=== PATIENT | male | born 1970 | race Caucasian/White ===

== ENCOUNTER 2018-07-22 01:22 | Outpatient (CLI) | payer OTHER, SELFPAY ==
--- NOTE | 2018-07-22 08:14 | DI.RAD_ITS ---
SYMPTOM/DIAGNOSIS: LT SHOULDER BURSITIS, PAIN. M25.512, M75.52 LEFT SHOULDER: No fracture or dislocation is seen. The glenohumeral joint space is well maintained. Humeral head is normally positioned. No tendon or joint space calcifications are seen. There is no significant AC joint spurring. IMPRESSION: Negative left shoulder.
== END 2018-07-22 01:42 ==
PROVIDERS: PCP Family Medicine; Visit Provider Family Medicine
DX: M25.512 Pain in left shoulder (principal); M75.52 Bursitis of left shoulder
CPT/HCPCS: 73030

== ENCOUNTER 2018-07-28 07:38 | Day surgery (SDC) | payer OTHER, SELFPAY ==
--- NOTE | 2018-07-28 06:27 | W.COLOREPORT ---
Date of service: 07/28/18 Time of Service: Colonoscopy Report Date of procedure: 07/28/18 Pre-op diagnosis general: Colon Cancer Screening and Family history Post-op diagnosis procedure note: other (Colorectal polyps) Procedure: Colonoscopy with polypectomy by hot snare and cold forceps Tattooing of polypectomy site Surgeon: Nan Morrow Anesthesia proc note operative: MAC (Olivia Levy, ROADS [employer]ARKING [employer]S SWEEPER OPERATOR/ ASA 2) Estimated blood loss (mL): 3 Pathology: other (Polyp at 30 cm and rectal polyp x2) Complications: None Disposition: same day Indications: Mr. Marinelli is a pleasant 48-year-old gentleman who was seen in the office for his first screening colonoscopy. He has a family history of colon cancer. Risks, benefits and complications have been reviewed. Complications include but are not limited to bleeding, pain, perforation, missed small lesion/polyp, sore throat, aspiration and adverse reaction to the medications. Questions were entertained and answered to their satisfaction and they wished to proceed. No guarantees were given or implied. Prep: Miralax/Dulcolax Procedure Start Time: Procedure End Time: 10:03 Retraction Time: 27 minutes Findings: 1. Pedunculated polyp at 30 cm about 0.8cm 2. Sessile rectal polyps x2 Procedure Description: After informed consent was obtained the patient was taken to the procedure room and placed in a left decubitous position. Monitors were applied and a time out was done. The patients name, date of , procedure, allergies to medications and metal in their body was reviewed. The patient was then sedated. Once sedated and comfortable a rectal exam was done. External exam was normal. Internal exam revealed a normal sphincter tone and no palpable masses. The prostate smooth. The scope was then introduced and retro-flexed. No internal hemorrhoids were identified. The scope was then advanced to the cecum without difficulty. The TI and appendiceal orifice were identified. The prep was good. The scope was then slowly retracted over 27 minutes back into the rectum. One pedunculated polyp was noted at 30 cm and removed with a hot snare. The area was tattooed with blue dye. 2 sessile polyps were removed with cold forceps. The scope was removed and the patient was woken up and taken back to Same day surgery in stable condition. The patient tolerated the procedure well and there were no immediate complications. Follow up: The patient should follow up in 3-5 years unless they develop changes in bowel habits or other new gastrointestinal complaints.
--- NOTE | 2018-07-28 06:28 | W.PM.DSUDISC ---
Discharge Plan Disposition Patient Disposition: HOME Condition: Good Discharge Details Reason For Visit: Colon Cancer Screening Attending Provider: Nan Morrow Primary Care Provider: Nathan Wu Home Meds and New Rx's Prescriptions: Continued flu vac [id number] 36mos up(PF) 60 mcg (15 mcg x 4)/0.5 mL syringe 60 mcg IM ONCE Qty: 0.5 RF: 0 venlafaxine 37.5 mg tablet 37.5 mg PO BID Qty: 60 RF: 5 ibuprofen 200 MG capsule 4 tab PO TID RF: 0 Discontinued bisacodyl [Dulcolax (bisacodyl)] 5 mg tablet,delayed release (DR/EC) 5 mg PO ONCE Qty: 4 RF: 0 polyethylene glycol 3350 17 gram/dose powder 255 g PO ONCE Qty: 255 RF: 0 Discharge Instructions Instructions: Colonoscopy (DC), Colorectal Polyps (DC) Additional Instructions: Findings: 1. Colon polyps Follow up: 3-5 years New Medications: none Please call if you develop: fevers >101.5 Nausea or Vomiting Abdominal pain that is not transient DAY SURGERY UNIT POST COLONOSCOPY INSTRUCTIONS 1. Because there will be medication in your system for the next 24 hours, you may feel a little sleepy. Your coordination will be affected. Therefore: a. Do not drive or operate dangerous equipment for 24 hours. b. Do not drink alcohol beverages for 24 hours (not even beer). c. Plan to go home and rest for the day. 2. Generally there are no restrictions on your activity after a day or so has gone by, but you may feel a bit fatigued for a few days. 3 After you arrive home you may have a light meal and return to a normal diet as you can tolerate it without feeling sick to your stomach. 4. After surgery, you may feel pain or discomfort. This should be only transient, but if it persists please contact your doctor. 5. If there are any questions regarding the findings of your procedure, please feel free to contact your doctor. 6. If you are unable to contact your doctor with a problem, contact the hospital at [phone]. 7. Continue all your regular medications unless directed otherwise. I understand the above instructions and have no questions. Signature of Patient or Responsible Adult Escort Date/Time Name of Responsible Adult Escort Signature of Nurse Date/Time Activity:: Activity as Tolerated Diet:: As Tolerated Discharge Orders Discharge Orders: Discharge Order (Routine); Ordered 07/28/18 Ordered By: Nan Morrow DS: Diagnosis Discharge Diagnosis (1) S/P colonoscopy: Status: Acute (2) Colorectal polyp detected on colonoscopy: Status: Acute
[2018-07-28 07:57] VITALS: BP 145/107; PULSE 87; RESP 16; TEMP 36.4
[2018-07-28] MEDS: Lactated Ringers 1,000 ML 80 ML IV (08:15)
--- NOTE | 2018-07-28 09:54 | BOWEL_PTH ---
PATIENT: August Marinelli LOC: [facility] U#:[id number] AGE/SX: 48/M ROOM: RE07/28/[address]: Nan Morrow MD : 1970 BED: DIS: 07/28/2018 SPEC #: [id number] RECD: 07/28/18 12:37 STATUS: MERA REQ #: [id number] MARIELA: 07/28/18 09:[address]: Nan Morrow DEPT: Surgical Specimen RECD BY: Nathalie Rivera ENTERED: 07/28/18 12:38 SP TYPE: Bowel OTHR DR: Nathan Wu MD Tissues: 1 - BIOPSY BOWEL 2 - BIOPSY BOWEL Procedures: GROSS AND MICRO LEVEL 4 Comments: [id number]
[2018-07-28] MEDS: Endoscopic Tattoo 5 ML SYR IJ (10:05)
[2018-07-28 10:37] VITALS: BP 123/83; PULSE 75; RESP 16; TEMP 37.1; O2SAT 96
== END 2018-07-28 11:05 | disposition home or self-care (01) ==
LOC: SUR 07:38
PROVIDERS: PCP Family Medicine; Visit Provider Surgery
PROC: 0DJD8ZZ Inspection of Lower Intestinal Tract, Via Natural or Artificial Opening Endoscopic (ICD-10-PCS; CPT 45378; principal; 2018-07-28 09:15)
DX: Z12.11 Encounter for screening for malignant neoplasm of colon (principal); D12.5 Benign neoplasm of sigmoid colon; K62.1 Rectal polyp; Z80.0 Family history of malignant neoplasm of digestive organs
CPT/HCPCS: 45385; 45380; 45381; 88305

== ENCOUNTER 2019-05-28 01:09 | Outpatient (CLI) | payer OTHER, SELFPAY ==
[2019-05-28 11:18] LABS: Abs Immature Grans 0.01 k/cumm (0.0-0.09); Absolute Basophil Count 0.03 k/cumm (0.0-0.2); Absolute Eosinophil Count 0.08 k/cumm (0.0-0.7); Absolute Monocyte Count 0.74 k/cumm (0.11-0.7); Absolute Neutrophil Count 3.17 k/cumm (1.2-6.7); Basophils % 0.6; Eosinophils % 1.5; HCT 42.5 % (40.0-50.0); HGB 14.6 g/dL (13.5-17.5); Immature Grans % 0.2; Lymphocytes % 25.8; Mean Corp. HGB Concentration 34.4 g/dL (32.0-36.0); Mean Corpuscular Hemoglobin 32.4 pg (27.0-33.0); Mean Corpuscular Volume 94.2 fL (80-95); Mean Platelet Volume 8.4 fL (8.0-11.0); Monocytes % 13.6; Neutrophils % 58.3; Platelet Count 236 x1000/uL (130-400); RBC 4.51 m/cumm (4.50-6.00); RBC Distribution Width 12.5 % (11.8-14.1); White Blood Cell Count 5.43 k/cumm (4.4-10.8)
[2019-05-28 12:21] LABS: ALT 39 U/L (16-63); AST 22 U/L (15-37); Albumin 4.1 g/dL (3.4-5.0); Alkaline Phosphatase 41 U/L (46-116); Anion Gap 7.9 mmol/L (3-11); BUN 14 mg/dL (7-18); Bilirubin, Total 0.6 mg/dL (0.2-1.0); CO2 29.1 mmol/L (21.0-32.0); CREATININE 0.94 mg/dL (0.70-1.30); Calcium 9.1 mg/dL (8.5-10.1); Chloride 105 mmol/L (98-107); Glucose 86 mg/dL (70-100); Potassium 4.2 mmol/L (3.5-5.1); Sodium 142 mmol/L (136-145); TSH (W/Ref FT4) 0.92 uIU/mL (0.36-3.74); Total Protein 7.4 g/dL (6.4-8.2)
[2019-05-29 09:39] LABS: PSA, Screening 0.8 ng/ml (0-2.5)
== END 2019-05-28 01:29 ==
PROVIDERS: PCP Family Medicine; Visit Provider Family Medicine
DX: Z80.42 Family history of malignant neoplasm of prostate; Z12.5 Encounter for screening for malignant neoplasm of prostate; F32.9 Major depressive disorder, single episode, unspecified; R19.4 Change in bowel habit
CPT/HCPCS: 36415; 80053; 84153; 84443; 85025

== ENCOUNTER 2020-08-02 02:21 | Outpatient (CLI) | payer OTHER, SELFPAY ==
[2020-08-02 08:05] LABS: ALT 50 U/L (16-63); AST 29 U/L (15-37); Alkaline Phosphatase 41 U/L (46-116); Anion Gap 10.7 mmol/L (3-11); BUN 15 mg/dL (7-18); Bilirubin, Total 0.6 mg/dL (0.2-1.0); CO2 26.3 mmol/L (21.0-32.0); CREATININE 1.16 mg/dL (0.70-1.30); Calcium 8.8 mg/dL (8.5-10.1); Calculated LDL 122 mg/dL (<100); Chloride 105 mmol/L (98-107); Cholesterol 222 mg/dL (<200); Glucose 107 mg/dL (74-106); HDL Cholesterol 61 mg/dL (40-60); Potassium 4.2 mmol/L (3.5-5.1); Sodium 142 mmol/L (136-145); Total Protein 7.3 g/dL (6.4-8.2); Triglyceride 195 mg/dL (<150)
== END 2020-08-02 02:41 ==
PROVIDERS: PCP Family Medicine; Visit Provider Family Medicine
DX: Z00.00 Encounter for general adult medical examination without abnormal findings (principal); R03.0 Elevated blood-pressure reading, without diagnosis of hypertension; Z13.220 Encounter for screening for lipoid disorders
CPT/HCPCS: 36415; 80053; 80061

== ENCOUNTER 2020-10-05 12:21 | Outpatient (CLI) | payer OTHER, SELFPAY ==
--- NOTE | 2020-10-05 12:15 | DI.RAD_ITS ---
EXAM: XR FOOT RT COMPLETE CLINICAL HISTORY: Stepped on tractor then severe pain/swelling, pain rt great toe, M79.674. TECHNIQUE: 2D digital imaging was performed. COMPARISON: No exams were available for comparison FINDINGS: There is no evidence of fracture or diastasis of the Lisfranc joint. The medial sesamoid bones subja cent to the great toe metatarsal head is noted to be bipartite. The metatarsophalangeal joint of the great toe appears unremarkable. Bone density is normal. No osseous lesion. No pes planus. Report IMPRESSION: DATA REPOSITORY: RADIATION DOSE DELIVERED:
[2020-10-05 13:06] LABS: Uric Acid 7.9 mg/dL (3.5-7.2)
== END 2020-10-05 12:22 ==
LOC: DI 12:22
PROVIDERS: PCP Family Medicine; Visit Provider Nurse Practitioner Family
DX: M79.674 Pain in right toe(s) (principal); M10.9 Gout, unspecified
CPT/HCPCS: 36415; 73630; 84550

== ENCOUNTER 2021-01-30 03:22 | Outpatient (CLI) | payer OTHER, SELFPAY ==
[2021-01-30 08:36] LABS: ALT 58 U/L (16-63); AST 28 U/L (15-37); Albumin 3.9 g/dL (3.4-5.0); Alkaline Phosphatase 44 U/L (46-116); BUN 18 mg/dL (7-18); Bilirubin, Total 0.3 mg/dL (0.2-1.0); CREATININE 1.1 mg/dL (0.70-1.30); Calcium 8.9 mg/dL (8.5-10.1); Calculated LDL 153 mg/dL (<100); Chloride 104 mmol/L (98-107); Cholesterol 255 mg/dL (<200); Glucose 109 mg/dL (74-106); HDL Cholesterol 50 mg/dL (40-60); Potassium 4.1 mmol/L (3.5-5.1); Sodium 141 mmol/L (136-145); Total Protein 7.3 g/dL (6.4-8.2); Triglyceride 263 mg/dL (<150)
== END 2021-01-30 03:23 | disposition home or self-care (01) ==
LOC: LBO 03:22
PROVIDERS: PCP Nurse Practitioner Family; Visit Provider Nurse Practitioner Family
DX: I10 Essential (primary) hypertension (principal); Z13.220 Encounter for screening for lipoid disorders; Z13.29 Encounter for screening for other suspected endocrine disorder; Z80.42 Family history of malignant neoplasm of prostate; Z12.5 Encounter for screening for malignant neoplasm of prostate
CPT/HCPCS: 36415; 80053; 80061; 84154; 84443

== ENCOUNTER 2022-03-14 03:03 | Outpatient (CLI) | payer OTHER, SELFPAY | END 2022-03-14 03:04 | disposition home or self-care (01) | LOC: LBO 03:05 | PROVIDERS: PCP Nurse Practitioner Family; Visit Provider Nurse Practitioner Family | DX: I10 Essential (primary) hypertension (principal) | CPT/HCPCS: 36415; 82565 ==

== ENCOUNTER 2022-09-10 09:05 | Day surgery (SDC) | payer OTHER, SELFPAY ==
--- NOTE | 2022-09-09 21:18 | W.COLOREPORT ---
Date of service: 09/10/22 Time of Service: 13:12 Colonoscopy Report Date of procedure: 09/10/22 Pre-op diagnosis general: H/o tubulovillous adenoma Post-op diagnosis procedure note: other (rectal benign-appearing polyps) Procedure: 1. Colonoscopy 2. polypectomy by cold forceps Surgeon: Orlin Glynn Anesthesia Type: MAC and General:No Airway Estimated blood loss (mL): 2 Pathology: other (1. rectal polyps) Complications: None Disposition: same day Indications: This is a 52-yo male here for surveillance colonoscopy. He has a personal history of tubulovillous adenoma (2018), and a family history of colon cancer in his father. Risks, benefits and complications have been reviewed. Complications include but are not limited to bleeding, pain, perforation, missed small lesion/polyp, sore throat, aspiration and adverse reaction to the medications. Questions were answered to their satisfaction and they wished to proceed. No guarantees were given or implied. Prep: Miralax/Dulcolax Retraction Time: >20 minute Findings: 1. previous ink tattoo in region of rectosigmoid, no associated polyps seen 2. rectal hyperplastic-appearing polyps Procedure Description: After informed consent was obtained, the patient was taken to the procedure room and placed in a left decubitus position. Monitors were applied and a time out was done. The patient's name, date of , procedure, allergies to medications, and metal in their body were reviewed. The patient was then sedated. Once sedated and comfortable, a digital rectal exam was done. External exam was normal. Internal exam revealed normal sphincter tone, and no palpable masses or gross blood. The colonoscope was then introduced and advanced to the cecum under direct visualization with mild difficulty. The ileocecal valve and appendiceal orifice were visualized. The prep was good, according to the [place]ed [place] Bowel Prep Scale. ?The scope was then slowly withdrawn over 20 minutes in a circumferential manner to the rectum. A good amount of lavage was performed to visualize the mucosa. In doing so, two hyperplastic-appearing polyps were encountered in the rectum. A previous ink tattoo in the rectosigmoid was visualized and there was no residual/recurrent polyp seen there. There? was no diverticulosis noted. The mucosa is pink and healthy.? In the rectum, the scope was retroflexed, and no internal hemorrhoids were noted.? The scope was straightened and withdrawn from the anus. The patient tolerated the procedure well, and there were no immediate complications.? The patient was taken to the Day Surgery Unit recovery?area in good condition. Follow up: 3-5 years, await pathology
--- NOTE | 2022-09-09 22:12 | W.PM.DSUDISC ---
Date of service: 09/10/22 Time of Service: 13:22 Discharge Plan Disposition Patient Disposition: Home Condition: Stable Discharge Details Reason For Visit: Screening for colorectal cancer Attending Provider: Orlin Glynn Primary Care Provider: Osmin Juárez Home Meds and New Rx's Prescriptions: No Action baclofen 10 mg tablet 10 mg PO BID PRN (Reason: muscle spasm) Qty: 60 0RF simvastatin 20 mg tablet 20 mg PO QHS Qty: 90 3RF indomethacin 50 mg capsule 50 mg PO TID Qty: 30 0RF Rx Instructions: administer with food or milk sildenafil [Viagra] 50 mg tablet 50 mg PO DAILY PRN (Reason: sexual activity) Qty: 30 5RF Rx Instructions: administer 30 minutes to 4 hours before activity triamcinolone acetonide 0.1 % lotion 1 applic topical TID PRN (Reason: Dermatitis) Qty: 60 5RF metoprolol succinate 100 mg tablet extended release 24 hr 150 mg PO DAILY Qty: 90 3RF lisinopril 20 mg tablet 20 mg PO DAILY Qty: 90 4RF venlafaxine 75 mg tablet 75 mg PO BID Qty: 60 3RF Discharge Instructions Instructions: Colonoscopy (DC), Colorectal Polyps (DC) Additional Instructions: Await pathology results Activity:: Activity as Tolerated Diet:: As Tolerated DS: Diagnosis Discharge Diagnosis (1) Rectal polyp: Status: Acute Asessment and Plan: await pathology
[2022-09-10 09:49] VITALS: BP 148/95; PULSE 94; RESP 18; TEMP 36.7; O2SAT 100
[2022-09-10] MEDS: Lactated Ringers 1,000 ML 80 ML IV (10:20)
--- NOTE | 2022-09-10 10:43 | ANES.PREOP_ITS ---
General Info Date of Service Date Performed: 09/10/22 Height: 6 ft 1 in Weight: 116.4 kg Body Mass Index (BMI): 33.8 Surgical Procedure: Operation Date: 09/10/22 10:35 Proposed Procedure Side Surgeon serjio Glynn MD Meds Allergies and Home Medications Allergies Allergy/AdvReac Type Severity Reaction Status Date / Time No Known Allergies Allergy Verified 09/10/22 09:45 Home Medication Medication Instructions Recorded baclofen 10 mg tablet 10 mg PO BID PRN muscle spasm #60 05/25/19 tabs sildenafil 50 mg tablet (Viagra) 50 mg PO DAILY PRN sexual activity 10/26/19 #30 tabs indomethacin 50 mg capsule 50 mg PO TID #30 caps 12/15/21 simvastatin 20 mg tablet 20 mg PO QHS #90 tabs 12/15/21 metoprolol succinate 100 mg 150 mg PO DAILY #90 tabs 01/15/22 tablet,extended release 24 hr triamcinolone acetonide 0.1 % 1 applic topical TID PRN 01/15/22 lotion Dermatitis #60 mL lisinopril 20 mg tablet 20 mg PO DAILY #90 tabs 06/04/22 venlafaxine 75 mg tablet 75 mg PO BID #60 tabs 07/11/22 Current Visit Medications: Current Medications Generic Name Dose Route Start Last Admin Trade Name Umairq PRN Reason Stop Dose Admin Ringer's Solution 1,000 mls @ 80 mls/hr 09/10/22 06:00 09/10/22 10:20 IV 09/10/22 23:59 80 mls/hr INFUSION CHUCHO Administration IV Miscellaneous Supplies 1 each 09/10/22 06:00 Iv Access IV 09/10/22 23:59 DIRECTED CHUCHO Sodium Chloride 0 ml 09/10/22 06:00 Normal Saline Flush 10 Ml Syr IV 09/10/22 23:59 PRN PRN Sodium Chloride 0 ml 09/10/22 06:00 Normal Saline 10 Ml Vial IJ 09/10/22 23:59 DIRECTED PRN Sterile Water 0 ml 09/10/22 06:00 Water,Injection,Sterile 10 Ml Vial IJ 09/10/22 23:59 DIRECTED PRN PFSH Active Problems Active Problems: Problem Status Onset Code Screening for colon cancer Z12.11 Hyperlipidemia E78.5 Hypertension I10 Gout attack M10.9 Status post hernia repair 05/19/14 Z98.890, Z87.19 Family history of colon cancer Z80.0 Tubular adenoma of colon ~07/28/18 D12.6 Depression F32.9 History of tobacco use Z87.891 Family history of prostate cancer in father 11/29/17 Z80.42 Chronic low back pain M54.5, G89.29 Alcohol abuse 05/19/14 F10.10 Surgical History Surgical History Arthroplasty of knee (12/21/05) [facility]; DR. KOROMA; LEFT KNEE cystectomy (~08/2013) right middle finger History of left knee surgery (05/19/14) History of total cystectomy Vasectomy Tobacco Smoking/Tobacco Use Status: Former Tobacco Use Passive smoking exposure: Yes Second hand exposure: Yes Alcohol Alcohol Intake: current Alcohol intake frequency: 3 or more drinks per day Alcohol type: beer Details: Consumes a 6 pk/day Substance Use Substance use: Never Vital Signs and Lab Results Vital Signs Most Recent Vital Signs in EMR: Most Recent Vital Signs Temp Pulse Resp BP Pulse Ox 36.7 C 94 H 18 148/95 H 100 09/10/22 09:49 09/10/22 09:49 09/10/22 09:49 09/10/22 09:49 09/10/22 09:49 Lab Results Blood Type / Crossmatch: No Data to Display Complete Blood Count: No Data to Display Complete Metabolic Panel: No Data to Display Liver Function Panel: No Data to Display Coagulation Panel: No Data to Display Cardiac Panel: No Data to Display Arterial Blood Gas: No Data to Display Venous Blood Gas: No Data to Display Pancreas Panel: No Data to Display Thyroid Panel: No Data to Display Infectious Disease: No Data to Display Blood Cultures: No Data to Display Toxicology Panel: No Data to Display Anesthesia Assessment and Plan Anesthesia History Personal History: No History of Anesthesia Complications Family History: No Family History of Anesthesia Complications Exercise Tolerance Exercise Tolerance: Metabolic Equivalents>4 Pertinent Negatives Pertinent Negatives: No Symptoms of GERD, No Major Cardiovascular Symptoms or Complaints and No Major Pulmonary Symptoms or Complaints Cardiac & Pulmonary Exam Cardiac Exam: Normal S1/S2 Heart Sounds Pulmonary Exam: Clear Bilateral Breath Sounds Implantable Cardiac Device Does patient have a Pacemaker or an ICD?: No Airway Exam Known Difficult Airway: No Mallampati Class: 1 Mouth Opening: Normal (> 3cm) Thyromental Distance: Greater than 3 cm Neck Range of Motion: Full ROM Neck Circumference: Normal Teeth Condition: Normal Dentition ASA Classification ASA Score: ASA 2 Emergency Case?: No NPO Status NPO Status: NPO Clears >2 hours, Solids >8 hours Anesthesia Plan Resuscitation Status: Full Code Anesthesia Technique: General Anesthesia Airway Planned: Natural Airway Monitors Used: Standard Monitors
[2022-09-10 10:45] VITALS: BMI 33.8
--- NOTE | 2022-09-10 13:04 | BOWEL_PTH ---
PATIENT: August Marinelli LOC: [facility] U#:[id number] AGE/SX: 52/M ROOM: RE09/10/[address]: Orlin Glynn : 1970 BED: DIS: 09/10/2022 SPEC #: [id number] RECD: 09/10/22 13:23 STATUS: MERA REQ #: [id number] MARIELA: 09/10/22 13:[address]: Orlin Glynn DEPT: Surgical Specimen RECD BY: Nathalie Rivera ENTERED: 09/10/22 13:24 SP TYPE: Bowel OTHR DR: Osmin Juárez, MANUAL ARTS THERAPIST Tissues: 1 - BIOPSY BOWEL Procedures: GROSS AND MICRO LEVEL 4 Comments: [id number]
[2022-09-10 13:12] VITALS: BP 106/84; PULSE 93; RESP 18; TEMP 36.3; O2SAT 96
--- NOTE | 2022-09-10 13:17 | W.ANESPOSTOP ---
Postoperative Evaluation Date, Time and Location Date Performed: 09/10/22 Time Performed: 13:17 Patient Location: Day Surgery Unit Vital Signs Most Recent Imported Vital Signs: Most Recent Vital Signs Temp Pulse Resp BP Pulse Ox 36.7 C 94 H 18 148/95 H 100 09/10/22 09:49 09/10/22 09:49 09/10/22 09:49 09/10/22 09:49 09/10/22 09:49 Pain Score Most Recent Pain Score: Most Recent Pain Score Pain Level 0 09/10/22 09:49 Assessment Mental Status: Awake (Alert & Oriented to Patient Baseline) Airway and Respiratory Function: Patent airway with normal (patient baseline) respiratory exam Cardiovascular Function: Hemodynamically Stable Hydration Status: Adequately Hydrated Nausea & Vomiting: No Nausea or Vomiting Pain: Pt. Denies Any Pain Peripheral Nerve Block: Patient did not receive a nerve block
[2022-09-10 13:40] VITALS: BP 125/92; PULSE 77; RESP 16; TEMP 36.8; O2SAT 97
== END 2022-09-10 14:20 | disposition home or self-care (01) ==
PROVIDERS: PCP Nurse Practitioner Family; Visit Provider Surgery
PROC: 0DJD8ZZ Inspection of Lower Intestinal Tract, Via Natural or Artificial Opening Endoscopic (ICD-10-PCS; CPT 45378; principal; 2022-09-10 10:30)
DX: Z12.11 Encounter for screening for malignant neoplasm of colon (principal); K62.1 Rectal polyp; Z80.0 Family history of malignant neoplasm of digestive organs; Z86.010 Personal history of colon polyps
CPT/HCPCS: 45380; 88305; J2704

== ENCOUNTER 2022-10-08 00:47 | Outpatient (CLI) | payer OTHER, SELFPAY ==
--- NOTE | 2022-10-08 07:45 | DI.RAD_ITS ---
Exam(s) XR FINGER LT MIDDLE EXAM: XR FINGER LT MIDDLE EXAM DATE/TIME: CLINICAL HISTORY: Significant pain at the PIP x 3 months,lt finger, m79.645. TECHNIQUE: 2D digital imaging was performed of the left finger. Three views were obtained. PA/AP, oblique, and lateral views were obtained. COMPARISON: None. FINDINGS: BONES: No acute fracture is present. No bony destructive lesion is seen. There is a small spur seen a t the posterior aspect of the head of the middle phalanx. There is a well corticated osseous density posterior to the DIP joint on the lateral view. It appears old. There is a similar tiny well corti cated bony density at the posterior aspect of the PIP joint which appears old. JOINTS: No dislocation is present. SOFT TISSUE: Normal. IMPRESSION: 1. No evidence of acute fracture or dislocation. 2. Mild degenerative changes seen of the finger. DATA REPOSITORY: RADIATION DOSE DELIVERED:
== END 2022-10-08 01:07 ==
LOC: DI 00:50
PROVIDERS: PCP Nurse Practitioner Family; Visit Provider Nurse Practitioner Family
DX: M79.645 Pain in left finger(s) (principal); M77.8 Other enthesopathies, not elsewhere classified
CPT/HCPCS: 73140

== ENCOUNTER 2023-04-24 03:25 | Outpatient (CLI) | payer OTHER, SELFPAY ==
[2023-04-24 15:25] LABS: ALT 52 U/L (16-63); AST 54 U/L (15-37); Albumin 3.9 g/dL (3.4-5.0); Alkaline Phosphatase 55 U/L (46-116); Anion Gap 9.3 mmol/L (3-11); BUN 15 mg/dL (7-18); Bilirubin, Total 0.4 mg/dL (0.2-1.0); CO2 27.7 mmol/L (21.0-32.0); CREATININE 1.1 mg/dL (0.70-1.30); Calcium 9.6 mg/dL (8.5-10.1); Chloride 102 mmol/L (98-107); Cholesterol 251 mg/dL (<200); Estimated GFR 80.27 (mL/min/1.73m2); Glucose 111 mg/dL (74-106); HDL Cholesterol 56 mg/dL (40-60); Potassium 4.2 mmol/L (3.5-5.1); Sodium 139 mmol/L (136-145); Total Protein 7.7 g/dL (6.4-8.2); Triglyceride 621 mg/dL (<150)
[2023-04-24 16:35] LABS: LDL CHOLESTEROL 122 mg/dL (<100)
[2023-04-24 22:59] LABS: PSA, Screening 0.8 ng/mL (<=3.5)
== END 2023-04-24 03:26 | disposition home or self-care (01) ==
LOC: LBO 03:25
PROVIDERS: PCP Nurse Practitioner Family; Visit Provider Nurse Practitioner Family
DX: E78.5 Hyperlipidemia, unspecified (principal); F10.10 Alcohol abuse, uncomplicated; Z12.5 Encounter for screening for malignant neoplasm of prostate
CPT/HCPCS: 36415; 80053; 80061; 83721; 84153

== ENCOUNTER 2023-08-07 01:30 | Outpatient (CLI) | payer OTHER, SELFPAY ==
[2023-08-07 09:15] LABS: Calculated LDL 124 mg/dL (<100); Cholesterol 221 mg/dL (<200); HDL Cholesterol 56 mg/dL (40-60); Triglyceride 208 mg/dL (<150)
== END 2023-08-07 01:31 | disposition home or self-care (01) ==
LOC: LBO 01:30
PROVIDERS: PCP Nurse Practitioner Family; Visit Provider Nurse Practitioner Family
DX: E78.5 Hyperlipidemia, unspecified (principal)
CPT/HCPCS: 36415; 80061

== ENCOUNTER 2023-12-20 09:51 | Outpatient (CLI) | payer OTHER, SELFPAY ==
[2023-12-20 08:54] LABS: Calculated LDL 73 mg/dL (<100); Cholesterol 187 mg/dL (<200); HDL Cholesterol 67 mg/dL (40-60); Triglyceride 236 mg/dL (<150)
== END 2023-12-20 09:52 | disposition home or self-care (01) ==
LOC: LBO 09:52
PROVIDERS: PCP Nurse Practitioner Family; Visit Provider Nurse Practitioner Family
DX: E78.5 Hyperlipidemia, unspecified (principal)
CPT/HCPCS: 36415; 80061

== ENCOUNTER 2024-02-19 21:42 | Outpatient (REF) | payer OTHER, SELFPAY | END 2024-02-19 21:43 | disposition home or self-care (01) | LOC: LBN 21:42 | PROVIDERS: PCP Nurse Practitioner Family; Visit Provider Nurse Practitioner Family | DX: W57.XXXA Bitten or stung by nonvenomous insect and other nonvenomous arthropods, initial encounter (principal); S50.861A Insect bite (nonvenomous) of right forearm, initial encounter | CPT/HCPCS: 87070; 87205 ==

== ENCOUNTER 2024-05-22 14:50 | Outpatient (CLI) | payer OTHER, SELFPAY ==
[2024-05-22 15:18] LABS: Hemoglobin A1C 5.3 % (<5.7)
[2024-05-22 15:41] LABS: CREATININE 1.2 mg/dL (0.70-1.30); Calculated LDL 99 mg/dL (<100); Cholesterol 199 mg/dL (<200); Estimated GFR 71.86 (mL/min/1.73m2); HDL Cholesterol 47 mg/dL (40-60); Potassium 4.3 mmol/L (3.5-5.1); Triglyceride 265 mg/dL (<150)
[2024-05-22 23:33] LABS: PSA, Screening 0.9 ng/mL (<=3.5)
== END 2024-05-22 14:51 | disposition home or self-care (01) ==
LOC: LBO 14:51
PROVIDERS: PCP Nurse Practitioner Family; Visit Provider Nurse Practitioner Family
DX: I10 Essential (primary) hypertension (principal); Z13.220 Encounter for screening for lipoid disorders; Z12.5 Encounter for screening for malignant neoplasm of prostate; Z13.1 Encounter for screening for diabetes mellitus
CPT/HCPCS: 36415; 80061; 84153; 82565; 83036; 84132

== ENCOUNTER 2025-06-25 13:23 | Outpatient (CLI) | payer OTHER, SELFPAY ==
[2025-06-25 13:45] LABS: Hemoglobin A1C 5.1 % (<5.7)
[2025-06-25 13:57] LABS: ALT 20 U/L (10-49); AST 19 U/L (<34); Albumin 4.7 g/dL (3.4-5.0); Alkaline Phosphatase 61 U/L (46-116); Anion Gap 10.2 mmol/L (3-11); BUN 8 mg/dL (9-23); Bilirubin, Total 0.70 mg/dL (0.2-1.2); CO2 28.8 mmol/L (20.0-31.0); Calcium 9.9 mg/dL (8.3-10.6); Chloride 103 mmol/L (98-107); Cholesterol 185 mg/dL (<200); Glucose 88 mg/dL (74-106); HDL Cholesterol 59 mg/dL (>40); Potassium 3.9 mmol/L (3.5-5.1); Sodium 142 mmol/L (136-145); Total Protein 8.0 g/dL (5.7-8.2)
[2025-06-25 22:48] LABS: PSA, Screening 1.4 ng/mL (<=3.5)
== END 2025-06-25 13:24 | disposition home or self-care (01) ==
LOC: LBO 13:26
PROVIDERS: PCP Nurse Practitioner Family; Visit Provider Nurse Practitioner Family
DX: I10 Essential (primary) hypertension (principal); Z13.1 Encounter for screening for diabetes mellitus; Z13.220 Encounter for screening for lipoid disorders; Z12.5 Encounter for screening for malignant neoplasm of prostate
CPT/HCPCS: 36415; 80053; 80061; 84153; 83036